=== PATIENT | male | born 1995 | race African-American/Black ===

== ENCOUNTER 2018-09-17 12:23 | Emergency (ER) | payer SELFPAY ==
[~2018-09-17] VITALS: Ht 182.9 cm; Wt 59.0 kg
[~2018-09-17 12:23] MED LIST: AMOX500C PO; AMOX875T PO; AZIT250T6 PO; BENZ100C PO; DICY10CA53 PO; DICY20TA3 PO; HYDR-3164 PO; IBUP-1060 PO; NAPR-695 PO; ONDA4TAB10 SL; ONDA4TAB7 PO; POLY119P4 PO; PRED20TA PO; PRED50TA PO; PROM25TA10 PO
[2018-09-17 12:50] VITALS: BP 107/60
[2018-09-17 12:58] LABS: BASO % 1 % (0-3); EOS # 0.1 x10^3/uL (0.0-0.7); EOS % 4 % (0-3); HEMATOCRIT 41.1 % (39.0-53.0); HEMOGLOBIN 13.8 g/dL (13.0-17.5); LYMPH # 1.7 x10^3/uL (1.0-4.8); LYMPH % 57 % (24-48); MEAN CORPUSCULAR HEMOGLOBIN 29 pg (25-35); MEAN CORPUSCULAR HGB CONC 34 g/dL (31-37); MEAN CORPUSCULAR VOLUME 85 fL (79-100); MONO # 0.2 x10^3/uL (0.0-1.1); MONO % 7 % (0-9); NEUT % 32 % (31-73); PLATELET COUNT 174 x10^3/uL (140-400); RED BLOOD COUNT 4.85 x10^6/uL (4.30-5.70); RED CELL DISTRIBUTION WIDTH 12.8 % (11.5-14.5)
[2018-09-17 13:08] LABS: CALCIUM 8.6 mg/dL (8.5-10.1); CREATININE 0.9 mg/dL (0.7-1.3); GFR 128.9; POTASSIUM 3.7 mmol/L (3.5-5.1)
[2018-09-17 13:14] LABS: ALBUMIN 3.8 g/dL (3.4-5.0); ALBUMIN/GLOBULIN RATIO 1.3 (1.0-1.7); C-REACTIVE PROTEIN 0.5 mg/L (0-3.3); MONONUCLEOSIS PATIENT NEGATIVE (NEGATIVE); TOTAL BILIRUBIN 0.3 mg/dL (0.2-1.0); TOTAL PROTEIN 6.8 g/dL (6.4-8.2)
[2018-09-17] MEDS ORDERED: AMOX500C PO (14:05)
--- NOTE | 2018-09-17 14:06 | PHYS DOC ---
Past Medical History Past Medical History: Anemia, Pneumonia, Other Additional Past Medical Histor: sickle cell trait, dental abcess Past Surgical History: No Surgical History Alcohol Use: None Drug Use: Marijuana Adult General Chief Complaint Chief Complaint: SORE THROAT HPI HPI Patient is a 22 year old male who presents with a sore throat that has hurt intermittently for the past 7 months. The patient has not been seen primary or an ENT specialist for this condition. He states that he has also had some fatigue. He denies earaches or fever. Review of Systems Review of Systems Constitutional: Denies fever or chills [] Eyes: Denies change in visual acuity, redness, or eye pain [] HENT: Denies nasal congestion or sore throat [] Respiratory: Denies cough or shortness of breath [] Cardiovascular: No additional information not addressed in HPI [] GI: Denies abdominal pain, nausea, vomiting, bloody stools or diarrhea [] : Denies dysuria or hematuria [] Musculoskeletal: Denies back pain or joint pain [] Integument: Denies rash or skin lesions [] Neurologic: Denies headache, focal weakness or sensory changes [] Endocrine: Denies polyuria or polydipsia [] All other systems were reviewed and found to be within normal limits, except as documented in this note. Allergies Allergies Allergies Coded Allergies Type Severity Reaction Last Updated Verified No Known Drug Allergies 01/15/16 No Physical Exam Physical Exam Constitutional: Well developed, well nourished, no acute distress, non-toxic appearance. [] HENT: Normocephalic, atraumatic, bilateral external ears normal, pharyngeal erythema with no oral exudates, nose normal. [] Eyes: PERRLA, EOMI, conjunctiva normal, no discharge. [] Neck: Normal range of motion, no tenderness, supple, no stridor. [] Cardiovascular:Heart rate regular rhythm, no murmur [] Lungs & Thorax: Bilateral breath sounds clear to auscultation [] Abdomen: Bowel sounds normal, soft, no tenderness, no masses, no pulsatile masses. [] Skin: Warm, dry, no erythema, no rash. [] Neurologic: Alert and oriented X 3, normal motor function, normal sensory function, no focal deficits noted. [] Psychologic: Affect normal, judgement normal, mood normal. [] Current Patient Data Vital Signs Vital Signs Date Time Temp Pulse Resp B/P (MAP) Pulse Ox O2 Delivery O2 Flow Rate FiO2 09/17/18 12:50 98.2 89 18 107/60 (76) 99 Room Air 98.2 Lab Values Laboratory Tests Test 09/17/18 12:50 White Blood Count 3.0 x10^3/uL (4.0-11.0) L Red Blood Count 4.85 x10^6/uL (4.30-5.70) Hemoglobin 13.8 g/dL (13.0-17.5) Hematocrit 41.1 % (39.0-53.0) Mean Corpuscular Volume 85 fL (79-100) Mean Corpuscular Hemoglobin 29 pg (25-35) Mean Corpuscular Hemoglobin Concent 34 g/dL (31-37) Red Cell Distribution Width 12.8 % (11.5-14.5) Platelet Count 174 x10^3/uL (140-400) Neutrophils (%) (Auto) 32 % (31-73) Lymphocytes (%) (Auto) 57 % (24-48) H Monocytes (%) (Auto) 7 % (0-9) Eosinophils (%) (Auto) 4 % (0-3) H Basophils (%) (Auto) 1 % (0-3) Neutrophils # (Auto) 1.0 x10^3uL (1.8-7.7) L Lymphocytes # (Auto) 1.7 x10^3/uL (1.0-4.8) Monocytes # (Auto) 0.2 x10^3/uL (0.0-1.1) Eosinophils # (Auto) 0.1 x10^3/uL (0.0-0.7) Basophils # (Auto) 0.0 x10^3/uL (0.0-0.2) Erythrocyte Sedimentation Rate 1 (0-15) Sodium Level 142 mmol/L (136-145) Potassium Level 3.7 mmol/L (3.5-5.1) Chloride Level 105 mmol/L (98-107) Carbon Dioxide Level 29 mmol/L (21-32) Anion Gap 8 (6-14) Blood Urea Nitrogen 7 mg/dL (8-26) L Creatinine 0.9 mg/dL (0.7-1.3) Estimated GFR (Cockcroft-Gault) 128.9 BUN/Creatinine Ratio 8 (6-20) Glucose Level 110 mg/dL (70-99) H Calcium Level 8.6 mg/dL (8.5-10.1) Total Bilirubin 0.3 mg/dL (0.2-1.0) Aspartate Amino Transferase (AST) 14 U/L (15-37) L Alanine Aminotransferase (ALT) 13 U/L (16-63) L Alkaline Phosphatase 59 U/L (46-116) C-Reactive Protein, Quantitative 0.5 mg/L (0-3.3) Total Protein 6.8 g/dL (6.4-8.2) Albumin 3.8 g/dL (3.4-5.0) Albumin/Globulin Ratio 1.3 (1.0-1.7) Heterophil Agglutinins Negative (NEGATIVE) Laboratory Tests 09/17/18 12:50 Laboratory Tests 09/17/18 12:50 EKG EKG [] Radiology/Procedures Radiology/Procedures [] Course & Med Decision Making Course & Med Decision Making Pertinent Labs and Imaging studies reviewed. (See chart for details) [] Dragon Disclaimer Dragon Disclaimer This electronic medical record was generated, in whole or in part, using a voice recognition dictation system. Departure Departure Impression: Primary Impression: Acute pharyngitis, unspecified Additional Impression: Fatigue Disposition: 01 HOME, SELF-CARE Condition: STABLE Referrals: NO PCP (PCP) Patient Instructions: Fatigue, Viral and Bacterial Pharyngitis Additional Instructions: Take the medication as directed. Follow-up with primary care for recheck in one week. Return to the emergency department if worsening. Scripts Amoxicillin (AMOXICILLIN) 500 Mg Capsule 2 CAP PO BID for pharyngitis, #40 CAP Prov: MATTY CANAS APRN 09/17/18 Problem Qualifiers MATTY CANAS APRN Sep 17, 2018 14:06
== END 2018-09-17 14:20 | disposition home or self-care (01) ==
LOC: MERGE 12:23 → ER 12:23
DX: J02.9 Acute pharyngitis, unspecified (principal); R53.83 Other fatigue; D57.3 Sickle-cell trait
CPT/HCPCS: 36415; 80053; 85025; 85651; 86140; 86308; 99283

== ENCOUNTER 2018-10-03 11:58 | Emergency (ER) | payer OTHER ==
[~2018-10-03] VITALS: Ht 182.9 cm; Wt 59.0 kg
[2018-10-03 12:07] VITALS: BP 130/79
--- NOTE | 2018-10-03 12:52 | PHYS DOC ---
Past Medical History Past Medical History: No Pertinent History Past Surgical History: Tonsillectomy Alcohol Use: None Drug Use: None Adult General Chief Complaint Chief Complaint: POST-OP PROBLEM HPI HPI Patient is a 22 year old male who presents with s/p tonsillectomy done yesterday at [facility]. He states that this morning her was eating eggs and felt something come forward into his mouth from his left tonsil. He states that he started pulling on it, but then decided he was not sure if that was a safe idea and then let it fall back down. He reports some soreness, but nothing overly painful. He denies bleeding. He denies f/c/n/v/CP/SOB. [] Review of Systems Review of Systems NEG FEVER NO BLEEDING Current Medications Current Medications see med list Allergies Allergies Allergies Coded Allergies Type Severity Reaction Last Updated Verified No Known Drug Allergies 05/21/18 No Physical Exam Physical Exam Constitutional: Well developed, well nourished, no acute distress, non-toxic appearance. [] HENT: Normocephalic, atraumatic, bilateral external ears normal, oropharynx moist, no oral exudates, nose normal. White,surgical cautery artefact visualized at b/l posterior oropharynx with surrounding erythema, no bleeding or purulence appreciated.[] Eyes: PERRLA, EOMI, conjunctiva normal, no discharge. [] Neck: Normal range of motion, no tenderness, supple, no stridor. [] Pulmonary: Normal respiratory effort no increased work of breathing no obvious chest wall trauma Abdomen: Non tender to palpation x 4 [] Skin: Warm, dry, no erythema, no rash. [] Back: No tenderness, no CVA tenderness. [] Extremities: No tenderness, no cyanosis, no clubbing, ROM intact, no edema. [] Neurologic: Alert and oriented X 3, normal motor function, normal sensory function, no focal deficits noted. [] Psychologic: Affect normal, judgement normal, mood normal. [] Current Patient Data Vital Signs Vital Signs Date Time Temp Pulse Resp B/P (MAP) Pulse Ox O2 Delivery O2 Flow Rate FiO2 10/03/18 12:07 98.5 94 14 130/79 (96) 98 Room Air 98.5 EKG EKG [] Radiology/Procedures Radiology/Procedures [] Course & Med Decision Making Course & Med Decision Making Pertinent Labs and Imaging studies reviewed. (See chart for details) Patient is one day s/p b/l tonsillectomy for infection. Pt denies f/c/n/v/CP/ SOB with mild tenderness and soreness to neck. Surgical site looks clean with normal healing processes. No evidence of infection or bleeding. Pt reassured that the surgical site appears normal and as expected given the procedure. Pt advised that if he begins to bleed then he should return to the ER as soon as possible. Pt understands, agrees and expressed satisfaction at this plan. Pt to be d/c'd. [] Levy Disclaimer Dragon Disclaimer This electronic medical record was generated, in whole or in part, using a voice recognition dictation system. Departure Departure Impression: Primary Impression: Status post tonsillectomy Disposition: 01 HOME, SELF-CARE Condition: STABLE SHAQUILLE BARKSDALE MD Oct 03, 2018 12:52
== END 2018-10-03 13:16 | disposition home or self-care (01) ==
LOC: ER 11:58
DX: J95.89 Other postprocedural complications and disorders of respiratory system, not elsewhere classified (principal); M54.2 Cervicalgia; Z90.89 Acquired absence of other organs; Y83.8 Other surgical procedures as the cause of abnormal reaction of the patient, or of later complication, without mention of misadventure at the time of the procedure
CPT/HCPCS: 99281

== ENCOUNTER 2018-10-07 00:05 | Emergency (ER) | payer SELFPAY ==
[~2018-10-07] VITALS: Ht 182.9 cm; Wt 57.6 kg
[2018-10-07 00:23] VITALS: BP 108/79
[2018-10-07] MEDS ORDERED: IBUPROFEN 400 MG TABLET. PO ONE (00:45)
[2018-10-07] MEDS ORDERED: IBUPROFEN 200 MG TABLET. PO ONE (00:45)
[2018-10-07] MEDS ORDERED: DEXAMETHASONE SOD PHOS 20 MG/5 ML VIAL. PO ONE (00:45)
[2018-10-07] MEDS ORDERED: PENICILLIN G BENZATHINE LA 1,200,000 UNIT/2 ML DISP.SYRIN. IM ONE (00:45)
--- NOTE | 2018-10-07 01:24 | PHYS DOC ---
Past Medical History Past Medical History: No Pertinent History Past Surgical History: Tonsillectomy Additional Past Surgical Histo: DENTAL EXTRACTION. Alcohol Use: None Drug Use: None Adult General Chief Complaint Chief Complaint: SORE THROAT HPI HPI 22-year-old male presents to ER with complaints of ongoing sore throat and swelling. He reports he had his tonsils surgically removed 2 days ago denies having his adenoids removed during the surgery. He reports he was seen at urgent care around 6 PM on 10/06/18 reporting he had minimal care while at the clinic. He reports he went to [facility] and sat in the ER for hours without being evaluated. He reports he has had ongoing sore throat and pain with swelling. He denies fever. He denies nausea or vomiting. He reports he anxiety with prescription for penicillin but has not gotten that prescription filled for pharyngitis. He reports he had taken Tylenol and prescribed oxycodone - denies any ibuprofen dosages. Pt denies inability to swallow secretions. Patient denies chest pain or palpitations. Review of Systems Review of Systems Constitutional: Denies fever or chills [] HENT: Denies nasal congestion. Reports sore/swollen throat with pain on swallowing Respiratory: Denies cough or shortness of breath [] Cardiovascular: No additional information not addressed in HPI [] GI: Denies nausea, vomiting Musculoskeletal: Denies neck pain Integument: Denies rash or skin lesions [] Neurologic: Denies headache, focal weakness or sensory changes [] All other systems were reviewed and found to be within normal limits, except as documented in this note. Current Medications Current Medications Current Medications Medications (Trade) Dose Ordered Sig/Liliana Start Time Stop Time Status Last Admin Dose Admin Dexamethasone Sodium Phosphate (Decadron) 10 mg 1X ONCE 10/07/18 00:45 10/07/18 00:47 DC 10/07/18 00:59 10 MG Ibuprofen (Motrin) 200 mg 1X ONCE 10/07/18 00:45 10/07/18 00:47 DC 10/07/18 00:59 200 MG Penicillin G Benzathine (Bicillin L-A) 1,200,000 unit 1X ONCE 10/07/18 00:45 10/07/18 00:47 DC 10/07/18 01:00 1,200,000 UNIT Allergies Allergies Allergies Coded Allergies Type Severity Reaction Last Updated Verified No Known Drug Allergies 05/21/18 No Physical Exam Physical Exam Constitutional: Well developed, well nourished, no acute distress, non-toxic appearance. Clear speech no pooling of secretions HENT: Normocephalic, atraumatic, bilateral ears normal, oropharynx moist- pharyngeal erythema with exudate on bilat. sides of throat- uvula midline, nose normal. [] Eyes: Pupils equal, conjunctiva normal, no discharge. [] Neck: Normal range of motion, no tenderness, supple, no stridor/gross adenopathy Cardiovascular: Heart rate regular rhythm, no murmur [] Lungs & Thorax: Bilateral breath sounds clear to auscultation. Resp. equal/ nonlabored Skin: Warm, dry, no erythema, no rash. [] Extremities: ROM intact, no edema. [] Neurologic: Alert and oriented X 3, normal motor function, normal sensory function, no focal deficits noted. [] Psychologic: Affect normal, judgement normal, mood normal. [] Current Patient Data Vital Signs Vital Signs Date Time Temp Pulse Resp B/P (MAP) Pulse Ox O2 Delivery O2 Flow Rate FiO2 10/07/18 00:23 98.2 70 16 108/79 (89) 98 Room Air 98.2 EKG EKG [] Radiology/Procedures Radiology/Procedures [] Course & Med Decision Making Course & Med Decision Making Patient was evaluated in the ER for complaints of ongoing sore and swollen throat following a tonsillectomy 2 days ago. Patient reports he was supposed to be on penicillin but has not got the prescription filled. Patient had taken no ibuprofen prior to ER visit so dose was given while in the ER along with dose of Decadron. Patient's airway remained patent. He had no difficulty swallowing secretions. Discussed options for treatment with one-time dose of IM Bicillin LA while in the ER versus getting his prescription as he has yet to get that filled. Patient opted to have the IM injection while in the ER. Patient advised on need to follow-up with his surgeon for reevaluation in 1-2 days.Education provided on signs and symptoms to return to ER. Discharge instructions were discussed. Pt encouraged to increase fluid intake and continue with instructions were received at time of his discharge following his tonsillectomy. [] Dragon Disclaimer Dragon Disclaimer This electronic medical record was generated, in whole or in part, using a voice recognition dictation system. Departure Departure Impression: Primary Impression: Pharyngitis Disposition: 01 HOME, SELF-CARE Condition: STABLE Referrals: NO PCP (PCP) Patient Instructions: Diet - Following Tonsillectomy, Adult, Tonsillectomy, Care After, [id number], Viral and Bacterial Pharyngitis Additional Instructions: Drink plenty of fluids. Continue medications as previously prescribed. Tylenol and/or ibuprofen as directed on container for pain control as needed. Follow-up with your surgeon in 1-2 days for reevaluation and further care. RHYS DEWITT APRN Oct 07, 2018 01:24
== END 2018-10-07 01:42 | disposition home or self-care (01) ==
LOC: ER 00:05
DX: J02.9 Acute pharyngitis, unspecified (principal); Z90.89 Acquired absence of other organs
CPT/HCPCS: 96372; 99284; J0561; J1100

== ENCOUNTER 2018-12-21 11:12 | Emergency (ER) | payer SELFPAY ==
[~2018-12-21] VITALS: Ht 182.9 cm; Wt 66.2 kg
[2018-12-21] MEDS ORDERED: MAGNESIUM CITRATE 296 ML SOLUTION. PO ONE (11:30)
[2018-12-21] MEDS ORDERED: IV NORMAL SALINE 1000ML BAG 1,000 ML IV ONE (11:30)
[2018-12-21 11:39] LABS: BASO % 1 % (0-3); EOS % 1 % (0-3); HEMATOCRIT 45.3 % (39.0-53.0); HEMOGLOBIN 15.3 g/dL (13.0-17.5); LYMPH # 1.3 x10^3/uL (1.0-4.8); LYMPH % 30 % (24-48); MEAN CORPUSCULAR HEMOGLOBIN 29 pg (25-35); MEAN CORPUSCULAR HGB CONC 34 g/dL (31-37); MEAN CORPUSCULAR VOLUME 85 fL (79-100); MONO # 0.2 x10^3/uL (0.0-1.1); MONO % 6 % (0-9); NEUT # 2.7 x10^3uL (1.8-7.7); NEUT % 62 % (31-73); PLATELET COUNT 201 x10^3/uL (140-400); RED BLOOD COUNT 5.33 x10^6/uL (4.30-5.70); RED CELL DISTRIBUTION WIDTH 13.6 % (11.5-14.5); WHITE BLOOD COUNT 4.3 x10^3/uL (4.0-11.0)
[2018-12-21 11:47] LABS: CALCIUM 9.2 mg/dL (8.5-10.1); CREATININE 1.1 mg/dL (0.7-1.3); GFR 101.3
[2018-12-21 11:54] LABS: ALBUMIN 4.5 g/dL (3.4-5.0); ALBUMIN/GLOBULIN RATIO 1.3 (1.0-1.7); TOTAL BILIRUBIN 1.1 mg/dL (0.2-1.0)
[2018-12-21] MEDS ORDERED: CONTRAST GIVEN. MC PRN (12:00)
[2018-12-21] MEDS ORDERED: IOHEXOL 300 MG/ML 100ML VIAL. IV ONE (12:00)
[2018-12-21 12:27] LABS: BILIRUBIN,URINE SMALL (NEG); CLARITY,URINE CLEAR; COLOR,URINE YELLOW; NITRITE,URINE NEGATIVE (NEG); PH,URINE 5.5; PROTEIN,URINE NEGATIVE (NEG-TRACE); UROBILINOGEN,URINE 0.2 mg/dL (0.2 mg/dL)
--- NOTE | 2018-12-21 12:33 | PHYS DOC ---
Past Medical History Past Medical History: Anemia, Anxiety, GERD Past Surgical History: Tonsillectomy Additional Past Surgical Histo: DENTAL EXTRACTION. Alcohol Use: None Drug Use: Benzodiazepine, Marijuana Adult General Chief Complaint Chief Complaint: ABDOMINAL PAIN HPI HPI 23-year-old otherwise healthy male presents with abdominal pain. He states this is been ongoing over the last several days. He states it has been progressive to the point this morning that it was intolerable. He states the pain comes in waves. Also, he states that he has not had a bowel movement since Friday. He states this is unusual for him. He states he has the sensation that he needs to go but is unable. He denies any fever chills or sweats. He's had no nausea or vomiting. He denies any dysuria or gross hematuria.[] Review of Systems Review of Systems Constitutional: Denies fever or chills [] Eyes: Denies change in visual acuity, redness, or eye pain [] HENT: Denies nasal congestion or sore throat [] Respiratory: Denies cough or shortness of breath [] Cardiovascular: No additional information not addressed in HPI [] GI: Per history of present illness[] : Denies dysuria or hematuria [] Musculoskeletal: Denies back pain or joint pain [] Integument: Denies rash or skin lesions [] Neurologic: Denies headache, focal weakness or sensory changes [] Endocrine: Denies polyuria or polydipsia [] All other systems were reviewed and found to be within normal limits, except as documented in this note. Current Medications Current Medications Current Medications Medications (Trade) Dose Ordered Sig/Liliana Start Time Stop Time Status Last Admin Dose Admin Info (CONTRAST GIVEN -- Rx MONITORING) 1 each PRN DAILY PRN 12/21/18 12:00 12/23/18 11:59 Iohexol (Omnipaque 300 Mg/ml) 75 ml 1X ONCE 12/21/18 12:00 12/21/18 12:01 DC 12/21/18 12:08 75 ML Magnesium Citrate (Citroma) 296 ml 1X ONCE 12/21/18 11:30 12/21/18 11:31 DC 12/21/18 11:52 296 ML Sodium Chloride 1,000 ml @ 1,000 mls/hr 1X ONCE 12/21/18 11:30 12/21/18 12:29 DC 12/21/18 11:31 1,000 MLS/HR Allergies Allergies Allergies Coded Allergies Type Severity Reaction Last Updated Verified No Known Drug Allergies 05/21/18 No Physical Exam Physical Exam Constitutional: Well developed, well nourished, no acute distress, non-toxic appearance. [] HENT: Normocephalic, atraumatic, bilateral external ears normal, oropharynx moist, no oral exudates, nose normal. [] Eyes: PERRLA, EOMI, conjunctiva normal, no discharge. [] Neck: Normal range of motion, no tenderness, supple, no stridor. [] Cardiovascular:Heart rate regular rhythm, no murmur [] Lungs & Thorax: Bilateral breath sounds clear to auscultation [] Abdomen: Mild diffuse tenderness to palp no rebound or guarding[] Skin: Warm, dry, no erythema, no rash. [] Back: No tenderness, no CVA tenderness. [] Extremities: No tenderness, no cyanosis, no clubbing, ROM intact, no edema. [] Neurologic: Alert and oriented X 3, normal motor function, normal sensory function, no focal deficits noted. [] Psychologic: Anxious. [] Current Patient Data Vital Signs Vital Signs Date Time Temp Pulse Resp B/P (MAP) Pulse Ox O2 Delivery O2 Flow Rate FiO2 12/21/18 11:22 98.7 86 18 135/74 (94) 98 Room Air 98.7 Lab Values Laboratory Tests Test 12/21/18 11:23 12/21/18 12:10 White Blood Count 4.3 x10^3/uL (4.0-11.0) Red Blood Count 5.33 x10^6/uL (4.30-5.70) Hemoglobin 15.3 g/dL (13.0-17.5) Hematocrit 45.3 % (39.0-53.0) Mean Corpuscular Volume 85 fL (79-100) Mean Corpuscular Hemoglobin 29 pg (25-35) Mean Corpuscular Hemoglobin Concent 34 g/dL (31-37) Red Cell Distribution Width 13.6 % (11.5-14.5) Platelet Count 201 x10^3/uL (140-400) Neutrophils (%) (Auto) 62 % (31-73) Lymphocytes (%) (Auto) 30 % (24-48) Monocytes (%) (Auto) 6 % (0-9) Eosinophils (%) (Auto) 1 % (0-3) Basophils (%) (Auto) 1 % (0-3) Neutrophils # (Auto) 2.7 x10^3uL (1.8-7.7) Lymphocytes # (Auto) 1.3 x10^3/uL (1.0-4.8) Monocytes # (Auto) 0.2 x10^3/uL (0.0-1.1) Eosinophils # (Auto) 0.0 x10^3/uL (0.0-0.7) Basophils # (Auto) 0.0 x10^3/uL (0.0-0.2) Sodium Level 138 mmol/L (136-145) Potassium Level 4.0 mmol/L (3.5-5.1) Chloride Level 100 mmol/L (98-107) Carbon Dioxide Level 25 mmol/L (21-32) Anion Gap 13 (6-14) Blood Urea Nitrogen 14 mg/dL (8-26) Creatinine 1.1 mg/dL (0.7-1.3) Estimated GFR (Cockcroft-Gault) 101.3 BUN/Creatinine Ratio 13 (6-20) Glucose Level 80 mg/dL (70-99) Calcium Level 9.2 mg/dL (8.5-10.1) Total Bilirubin 1.1 mg/dL (0.2-1.0) H Aspartate Amino Transferase (AST) 19 U/L (15-37) Alanine Aminotransferase (ALT) 17 U/L (16-63) Alkaline Phosphatase 65 U/L (46-116) Total Protein 8.0 g/dL (6.4-8.2) Albumin 4.5 g/dL (3.4-5.0) Albumin/Globulin Ratio 1.3 (1.0-1.7) Lipase 132 U/L (73-393) Urine Collection Type Unknown Urine Color Yellow Urine Clarity Clear Urine pH 5.5 Urine Specific Walton >=1.030 Urine Protein Negative mg/dL (NEG-TRACE) Urine Glucose (UA) Negative mg/dL (NEG) Urine Ketones (Stick) >=80 mg/dL (NEG) Urine Blood Negative (NEG) Urine Nitrite Negative (NEG) Urine Bilirubin Small (NEG) Urine Urobilinogen Dipstick 0.2 mg/dL (0.2 mg/dL) Urine Leukocyte Esterase Negative (NEG) Urine RBC 0 /HPF (0-2) Urine WBC Occ /HPF (0-4) Urine Squamous Epithelial Cells Occ /LPF Urine Bacteria 0 /HPF (0-FEW) Laboratory Tests 12/21/18 11:23 Laboratory Tests 12/21/18 11:23 EKG EKG [] Radiology/Procedures Radiology/Procedures [] Impressions: PROCEDURE: CT ABD PELV W/ IV CONTRST ONLY Examination: CT of the abdomen pelvis with IV contrast HISTORY: History of abdominal pain for 3 days COMPARISON: None available. Exposure: One or more of the following individualized dose reduction techniques were utilized for this examination: 1. Automated exposure control 2. Adjustment of the mA and/or kV according to patient size 3. Use of iterative reconstruction technique FINDINGS: The bibasilar lungs are clear. No evidence of free air identified in the abdomen. The visualized liver, spleen, adrenals grossly appears unremarkable. The gallbladder demonstrates small densities within could be gallstones. However evaluation is limited. Visualized pancreas grossly appears unremarkable. The stomach is distended with fluid and food. The small bowel is nondilated. The appendix is normal. Feces and gas noted in the colon. The urinary bladder is minimally distended. The bilateral kidneys enhance symmetrically. The caliber of the aorta grossly appears unremarkable. No evidence of lytic bony destructive lesion. IMPRESSION: 1. Mild distention of stomach with fluid and food. 2. Probable small gallstones. Course & Med Decision Making Course & Med Decision Making Pertinent Labs and Imaging studies reviewed. (See chart for details) [] Dragon Disclaimer Dragon Disclaimer This electronic medical record was generated, in whole or in part, using a voice recognition dictation system. Departure Departure Impression: Primary Impression: Abdominal pain Disposition: HOME, SELF-CARE Condition: IMPROVED Referrals: NO PCP (PCP) Patient Instructions: Abdominal Pain, Constipation, Adult Additional Instructions: Return emergency department with any new or concerning symptoms Problem Qualifiers Primary Impression: Abdominal pain Abdominal location: generalized Qualified Codes: R10.84 - Generalized abdominal pain GOLD COLE DO Dec 21, 2018 12:33
[2018-12-21 12:35] VITALS: BP 135/74
[2018-12-21 12:35] LABS: BACTERIA,URINE 0 /HPF (0-FEW); RBC,URINE 0 /HPF (0-2); SQUAMOUS EPITHELIAL CELL,UR OCC /LPF; WBC,URINE OCC /HPF (0-4)
== END 2018-12-21 12:49 | disposition home or self-care (01) ==
LOC: ER 11:12
DX: R10.84 Generalized abdominal pain (principal); F41.9 Anxiety disorder, unspecified; K21.9 Gastro-esophageal reflux disease without esophagitis; Z90.89 Acquired absence of other organs
CPT/HCPCS: 36415; 74177; 80053; 81001; 83690; 85025; 99285; J7030; Q9967

== ENCOUNTER 2019-02-01 05:53 | Emergency (ER) | payer OTHER ==
[~2019-02-01] VITALS: Ht 182.9 cm; Wt 66.2 kg
[2019-02-01 06:02] VITALS: BP 130/68
== END 2019-02-01 06:47 | disposition left against medical advice (07) ==
LOC: ER 05:53
DX: H57.11 Ocular pain, right eye (principal); Z53.21 Procedure and treatment not carried out due to patient leaving prior to being seen by health care provider

== ENCOUNTER 2019-03-07 20:16 | Emergency (ER) | payer OTHER ==
[~2019-03-07] VITALS: Ht 182.9 cm; Wt 61.7 kg
[2019-03-07 20:20] VITALS: BP 122/61
[2019-03-07 20:28] LABS: BILIRUBIN,URINE NEGATIVE (NEG); CLARITY,URINE CLEAR; COLOR,URINE YELLOW; NITRITE,URINE NEGATIVE (NEG); PROTEIN,URINE NEGATIVE (NEG-TRACE)
[2019-03-07 20:35] LABS: BACTERIA,URINE 0 /HPF (0-FEW); RBC,URINE 0 /HPF (0-2); WBC,URINE 0 /HPF (0-4)
[2019-03-07] MEDS ORDERED: AZITHROMYCIN 250 MG TABLET. PO ONE (21:00)
[2019-03-07] MEDS ORDERED: cefTRIAXone IM 250 MG VIAL IM ONE (21:00)
--- NOTE | 2019-03-07 21:14 | PHYS DOC ---
Past Medical History Past Medical History: Anemia, Anxiety, Asthma, GERD Past Surgical History: Tonsillectomy Additional Past Surgical Histo: DENTAL EXTRACTION. Alcohol Use: None Drug Use: Benzodiazepine, Marijuana Adult General Chief Complaint Chief Complaint: PAIN ON URINATION HPI HPI Patient is a 23 year old AA male who presents to the emergency department with complaints of suprapubic pain after urination and irregular penile discharge for the last 5 days. He reports some increased frequency with urination. He denies any hematuria, dysuria, back pain, nausea, vomiting, diarrhea, or fever. He currently denies any pain at this time. He denies any known exposure to sexually transmitted infections. Review of Systems Review of Systems Constitutional: Denies fever or chills [] Eyes: Denies change in visual acuity, redness, or eye pain [] HENT: Denies nasal congestion or sore throat [] Respiratory: Denies cough or shortness of breath [] Cardiovascular: No additional information not addressed in HPI [] GI: Denies abdominal pain, nausea, vomiting, or diarrhea [] : Denies dysuria or hematuria; see HPI [] Musculoskeletal: Denies back pain or joint pain [] Integument: Denies rash or skin lesions [] Neurologic: Denies headache, focal weakness or sensory changes [] Complete systems were reviewed and found to be within normal limits, except as documented in this note. Current Medications Current Medications Current Medications Medications (Trade) Dose Ordered Sig/Liliana Start Time Stop Time Status Last Admin Dose Admin Azithromycin (Zithromax) 1,000 mg 1X ONCE 03/07/19 21:00 03/07/19 21:01 DC 03/07/19 20:51 1,000 MG Ceftriaxone Sodium (Rocephin Im) 250 mg 1X ONCE 03/07/19 21:00 03/07/19 21:01 DC 03/07/19 20:51 250 MG Allergies Allergies Allergies Coded Allergies Type Severity Reaction Last Updated Verified No Known Drug Allergies 05/21/18 No Physical Exam Physical Exam Constitutional: Well developed, well nourished, no acute distress, non-toxic appearance. [] HENT: Normocephalic, atraumatic, bilateral external ears normal, nose normal. [] Eyes: PERRLA, EOMI, conjunctiva normal, no discharge. [] Neck: Normal range of motion, no stridor. [] Cardiovascular:Heart rate regular rhythm, no murmur [] Lungs & Thorax: Bilateral breath sounds clear to auscultation [] Abdomen: soft, no tenderness, no masses, no pulsatile masses. [] Skin: Warm, dry, no erythema, no rash. [] Back: No CVA tenderness. [] Extremities: No cyanosis, ROM intact, no edema. [] Neurologic: Alert and oriented X 3, no focal deficits noted. [] Psychologic: Affect normal, judgement normal, mood normal. [] Current Patient Data Vital Signs Vital Signs Date Time Temp Pulse Resp B/P (MAP) Pulse Ox O2 Delivery O2 Flow Rate FiO2 03/07/19 20:20 98.2 93 14 122/61 (81) 97 Room Air 98.2 Lab Values Laboratory Tests Test 03/07/19 20:21 Urine Collection Type Void Urine Color Yellow Urine Clarity Clear Urine pH 7.0 Urine Specific [place] 1.025 Urine Protein Negative mg/dL (NEG-TRACE) Urine Glucose (UA) Negative mg/dL (NEG) Urine Ketones (Stick) Negative mg/dL (NEG) Urine Blood Negative (NEG) Urine Nitrite Negative (NEG) Urine Bilirubin Negative (NEG) Urine Urobilinogen Dipstick 1.0 mg/dL (0.2 mg/dL) Urine Leukocyte Esterase Negative (NEG) Urine RBC 0 /HPF (0-2) Urine WBC 0 /HPF (0-4) Urine Squamous Epithelial Cells None /LPF Urine Bacteria 0 /HPF (0-FEW) Urine Mucus Marked /LPF EKG EKG [] Radiology/Procedures Radiology/Procedures [] Course & Med Decision Making Course & Med Decision Making Pertinent Labs and Imaging studies reviewed. (See chart for details) dx: Abnormal nonbloody discharge from penis, suspected sexually transmitted infection Urinalysis is not concerning for UTI, or trichomoniasis. Patient was treated prophylactically with 250 mg of IM Rocephin, and 1 g of PO Zithromax. Patient was instructed to avoid having intercourse until the results of gonorrhea and chlamydia testing are available, patient was notified that these results would not be available for 48 hours. If one or both of these tests is positive, patient needs to refrain from intercourse for approximately 1 week following the treatment of any current partners. Patient verbalized an understanding of home care, medications, follow-up, and return to ED instructions and was in agreement with the plan of care. [] Dragon Disclaimer Dragon Disclaimer This electronic medical record was generated, in whole or in part, using a voice recognition dictation system. Departure Departure Impression: Primary Impression: Abnormal non-bloody discharge from penis Additional Impression: Contact with and (suspected) exposure to infections with a predominantly sexual mode of transmission Disposition: HOME, SELF-CARE Condition: STABLE Referrals: NO PCP (PCP) Patient Instructions: Sexually Transmitted Disease, [id number] Additional Instructions: Recommend that you go to your local health department for comprehensive sexually transmitted disease testing. You have been treated for a suspected gonorrhea and chlamydia. Avoid having intercourse until the results of gonorrhea and chlamydia testing are available, these results will not be available for 48 hours. If one or both of these tests is positive, you need to refrain from intercourse for approximately 1 week following the treatment of any current partners. Follow-up with your primary care doctor if symptoms persist, return to ER if symptoms worsen. Problem Qualifiers SABAS GRESHAM APRN Mar 07, 2019 21:14
== END 2019-03-07 21:33 | disposition home or self-care (01) ==
LOC: ER 20:16
DX: R36.9 Urethral discharge, unspecified (principal); Z20.2 Contact with and (suspected) exposure to infections with a predominantly sexual mode of transmission; R10.30 Lower abdominal pain, unspecified; F41.9 Anxiety disorder, unspecified; J45.909 Unspecified asthma, uncomplicated; K21.9 Gastro-esophageal reflux disease without esophagitis; Z90.89 Acquired absence of other organs
CPT/HCPCS: 81001; 87491; 87591; 96372; 99284; J0696; Q0144

== ENCOUNTER 2019-05-23 21:56 | Emergency (ER) | payer SELFPAY ==
[~2019-05-23] VITALS: Ht 182.9 cm; Wt 56.7 kg
--- NOTE | 2019-05-23 22:20 | PHYS DOC ---
Past Medical History Past Medical History: Anemia, Anxiety, Asthma, GERD (ROJAS HOLLY APRN) Past Surgical History: Tonsillectomy Additional Past Surgical Histo: DENTAL EXTRACTION. (ROJAS HOLLY APRN) Alcohol Use: None Drug Use: Benzodiazepine, Marijuana (ROJAS HOLLY APRN) Adult General Chief Complaint Chief Complaint: CHEST PAIN HPI HPI Patient is a 23 year old male who presents with [chest discomfort. states approximately 2 hours ago he started to have some sharp chest pain. States he has had this same pain in the past, had been seen at [facility] for it approximately 2 weeks ago and was told he has inflammation in his lungs and he should take ibuprofen. states the pain came back again today. Denies recent fever, nausea, vomiting, SOA. states he did smoke marijuana tonight prior to the pain starting. States he has not taken any other medications for this. ] (ROJAS HOLLY APRN) Review of Systems Review of Systems Constitutional: Denies fever or chills [] Eyes: Denies change in visual acuity, redness, or eye pain [] HENT: Denies nasal congestion or sore throat [] Respiratory: Denies shortness of breath, however does report occasional dry cough. [] Cardiovascular: No additional information not addressed in HPI [] GI: Denies abdominal pain, nausea, vomiting, bloody stools or diarrhea [] : Denies dysuria or hematuria [] Musculoskeletal: Denies back pain or joint pain [] Integument: Denies rash or skin lesions [] Neurologic: Denies headache, focal weakness or sensory changes [] Endocrine: Denies polyuria or polydipsia [] All other systems were reviewed and found to be within normal limits, except as documented in this note. (ROJAS HOLLY APRN) Current Medications Current Medications Current Medications Medications (Trade) Dose Ordered Sig/Liliana Start Time Stop Time Status Last Admin Dose Admin Multi-Ingredient Mouthwash/Gargle (Gi Cocktail) 20 ml 1X ONCE 05/23/19 23:45 05/23/19 23:46 DC 05/23/19 23:45 20 ML (SHAQUILLE HENDERSON MD) Allergies Allergies Allergies Coded Allergies Type Severity Reaction Last Updated Verified No Known Drug Allergies 05/21/18 No (SHAQUILLE HENDERSON MD) Physical Exam Physical Exam Constitutional: Well developed, well nourished, no acute distress, non-toxic appearance. [] HENT: Normocephalic, atraumatic, bilateral external ears normal, oropharynx moist, no oral exudates, nose normal. [] Eyes: PERRLA, EOMI, conjunctiva normal, no discharge. [] Neck: Normal range of motion, no tenderness, supple, no stridor. [] Cardiovascular:Heart rate regular rhythm, no murmur [] Lungs & Thorax: Bilateral breath sounds clear to auscultation [] Abdomen: Bowel sounds normal, soft, no tenderness, no masses, no pulsatile masses. [] Skin: Warm, dry, no erythema, no rash. [] Back: No tenderness, no CVA tenderness. [] Extremities: No tenderness, no cyanosis, no clubbing, ROM intact, no edema. [] Neurologic: Alert and oriented X 3, normal motor function, normal sensory function, no focal deficits noted. [] Psychologic: Affect normal, judgement normal, mood normal. [] (ROJAS HOLLY APRN) Current Patient Data Vital Signs Vital Signs Date Time Temp Pulse Resp B/P (MAP) Pulse Ox O2 Delivery O2 Flow Rate FiO2 05/23/19 23:47 66 93/57 (69) 97 Room Air 05/23/19 22:05 98.7 17 98.7 (SHAQUILLE HENDERSON MD) Lab Values Laboratory Tests Test 05/23/19 22:10 05/23/19 22:20 White Blood Count 6.7 x10^3/uL (4.0-11.0) Red Blood Count 5.34 x10^6/uL (4.30-5.70) Hemoglobin 15.2 g/dL (13.0-17.5) Hematocrit 45.0 % (39.0-53.0) Mean Corpuscular Volume 84 fL (79-100) Mean Corpuscular Hemoglobin 29 pg (25-35) Mean Corpuscular Hemoglobin Concent 34 g/dL (31-37) Red Cell Distribution Width 13.7 % (11.5-14.5) Platelet Count 220 x10^3/uL (140-400) Neutrophils (%) (Auto) 23 % (31-73) L Lymphocytes (%) (Auto) 64 % (24-48) H Monocytes (%) (Auto) 8 % (0-9) Eosinophils (%) (Auto) 4 % (0-3) H Basophils (%) (Auto) 1 % (0-3) Neutrophils # (Auto) 1.5 x10^3/uL (1.8-7.7) L Lymphocytes # (Auto) 4.3 x10^3/uL (1.0-4.8) Monocytes # (Auto) 0.5 x10^3/uL (0.0-1.1) Eosinophils # (Auto) 0.3 x10^3/uL (0.0-0.7) Basophils # (Auto) 0.1 x10^3/uL (0.0-0.2) Segmented Neutrophils % 23 % (35-66) L Lymphocytes % 64 % (24-48) H Atypical Lymphocytes % (Manual) 4 % (0-0) H Monocytes % 4 % (0-10) Eosinophils % 4 % (0-5) Basophils % 1 % (0-3) Platelet Estimate Adequate (ADEQUATE) Poikilocytosis Slight Ovalocytes Few Schistocytes Occ Sodium Level 142 mmol/L (136-145) Potassium Level 3.4 mmol/L (3.5-5.1) L Chloride Level 104 mmol/L (98-107) Carbon Dioxide Level 28 mmol/L (21-32) Anion Gap 10 (6-14) Blood Urea Nitrogen 12 mg/dL (8-26) Creatinine 1.1 mg/dL (0.7-1.3) Estimated GFR (Cockcroft-Gault) 101.3 BUN/Creatinine Ratio 11 (6-20) Glucose Level 102 mg/dL (70-99) H Lactic Acid Level 2.2 mmol/L (0.4-2.0) H Calcium Level 8.9 mg/dL (8.5-10.1) Total Bilirubin 0.6 mg/dL (0.2-1.0) Aspartate Amino Transferase (AST) 14 U/L (15-37) L Alanine Aminotransferase (ALT) 12 U/L (16-63) L Alkaline Phosphatase 74 U/L (46-116) Troponin I Quantitative < 0.017 ng/mL (0.000-0.055) Total Protein 7.7 g/dL (6.4-8.2) Albumin 4.4 g/dL (3.4-5.0) Albumin/Globulin Ratio 1.3 (1.0-1.7) Lipase 157 U/L (73-393) Urine Collection Type Unknown Urine Color Yellow Urine Clarity Clear Urine pH 5.5 Urine Specific [place] 1.025 Urine Protein Negative mg/dL (NEG-TRACE) Urine Glucose (UA) Negative mg/dL (NEG) Urine Ketones (Stick) Negative mg/dL (NEG) Urine Blood Negative (NEG) Urine Nitrite Negative (NEG) Urine Bilirubin Negative (NEG) Urine Urobilinogen Dipstick 1.0 mg/dL (0.2 mg/dL) Urine Leukocyte Esterase Negative (NEG) Urine RBC 0 /HPF (0-2) Urine WBC 0 /HPF (0-4) Urine Bacteria 0 /HPF (0-FEW) Urine Mucus Marked /LPF Laboratory Tests 05/23/19 22:10 Laboratory Tests 05/23/19 22:10 (SHAQUILLE HENDERSON MD) Lab Values Laboratory Tests Test 05/23/19 22:10 05/23/19 22:20 White Blood Count 6.7 x10^3/uL (4.0-11.0) Red Blood Count 5.34 x10^6/uL (4.30-5.70) Hemoglobin 15.2 g/dL (13.0-17.5) Hematocrit 45.0 % (39.0-53.0) Mean Corpuscular Volume 84 fL (79-100) Mean Corpuscular Hemoglobin 29 pg (25-35) Mean Corpuscular Hemoglobin Concent 34 g/dL (31-37) Red Cell Distribution Width 13.7 % (11.5-14.5) Platelet Count 220 x10^3/uL (140-400) Neutrophils (%) (Auto) 23 % (31-73) L Lymphocytes (%) (Auto) 64 % (24-48) H Monocytes (%) (Auto) 8 % (0-9) Eosinophils (%) (Auto) 4 % (0-3) H Basophils (%) (Auto) 1 % (0-3) Neutrophils # (Auto) 1.5 x10^3/uL (1.8-7.7) L Lymphocytes # (Auto) 4.3 x10^3/uL (1.0-4.8) Monocytes # (Auto) 0.5 x10^3/uL (0.0-1.1) Eosinophils # (Auto) 0.3 x10^3/uL (0.0-0.7) Basophils # (Auto) 0.1 x10^3/uL (0.0-0.2) Segmented Neutrophils % 23 % (35-66) L Lymphocytes % 64 % (24-48) H Atypical Lymphocytes % (Manual) 4 % (0-0) H Monocytes % 4 % (0-10) Eosinophils % 4 % (0-5) Basophils % 1 % (0-3) Platelet Estimate Adequate (ADEQUATE) Poikilocytosis Slight Ovalocytes Few Schistocytes Occ Sodium Level 142 mmol/L (136-145) Potassium Level 3.4 mmol/L (3.5-5.1) L Chloride Level 104 mmol/L (98-107) Carbon Dioxide Level 28 mmol/L (21-32) Anion Gap 10 (6-14) Blood Urea Nitrogen 12 mg/dL (8-26) Creatinine 1.1 mg/dL (0.7-1.3) Estimated GFR (Cockcroft-Gault) 101.3 BUN/Creatinine Ratio 11 (6-20) Glucose Level 102 mg/dL (70-99) H Lactic Acid Level 2.2 mmol/L (0.4-2.0) H Calcium Level 8.9 mg/dL (8.5-10.1) Total Bilirubin 0.6 mg/dL (0.2-1.0) Aspartate Amino Transferase (AST) 14 U/L (15-37) L Alanine Aminotransferase (ALT) 12 U/L (16-63) L Alkaline Phosphatase 74 U/L (46-116) Troponin I Quantitative < 0.017 ng/mL (0.000-0.055) Total Protein 7.7 g/dL (6.4-8.2) Albumin 4.4 g/dL (3.4-5.0) Albumin/Globulin Ratio 1.3 (1.0-1.7) Lipase 157 U/L (73-393) Urine Collection Type Unknown Urine Color Yellow Urine Clarity Clear Urine pH 5.5 Urine Specific [place] 1.025 Urine Protein Negative mg/dL (NEG-TRACE) Urine Glucose (UA) Negative mg/dL (NEG) Urine Ketones (Stick) Negative mg/dL (NEG) Urine Blood Negative (NEG) Urine Nitrite Negative (NEG) Urine Bilirubin Negative (NEG) Urine Urobilinogen Dipstick 1.0 mg/dL (0.2 mg/dL) Urine Leukocyte Esterase Negative (NEG) Urine RBC 0 /HPF (0-2) Urine WBC 0 /HPF (0-4) Urine Bacteria 0 /HPF (0-FEW) Urine Mucus Marked /LPF Laboratory Tests 05/23/19 22:10 Laboratory Tests 05/23/19 22:10 (ROJAS HOLLY APRN) EKG EKG no STEMI per Dr Henderson. Sinus rhythm 60. [] (ROJAS HOLLY APRN) Radiology/Procedures Radiology/Procedures []FINDINGS: 2 views of the chest are obtained. There is no infiltrate, pleural effusion or pneumothorax. The heart is normal in size. There is nodular opacity overlying both lower lobes likely due to overlying osseous and pulmonary vascular shadows. IMPRESSION: No acute pulmonary finding. Electronically signed by: Anh Pierce MD (05/23/2019 10:48 PM) [facility] (ROJAS HOLLY APRN) Course & Med Decision Making Course & Med Decision Making Pertinent Labs and Imaging studies reviewed. (See chart for details) []discussed findings with patient, states he feels better but still has some of the sharp pain in his chest. Will try GI Cocktail at this time Following GI cocktail, patient reporting improvement. (ROJAS HOLLY APRN) Course & Med Decision Making Staff Physician Addendum: I was working in the ER during the course of this patient's visit. I was available for consultation as needed, but I was not directly involved in the ca re of this patient. (SHAQUILLE HENDERSON MD) Dragon Disclaimer Dragon Disclaimer This electronic medical record was generated, in whole or in part, using a voice recognition dictation system. (ROJAS HOLLY APRN) Departure Departure Impression: Primary Impression: Epigastric pain Disposition: HOME, SELF-CARE Condition: STABLE Referrals: NO PCP (PCP) Patient Instructions: Chest Pain (Nonspecific) Additional Instructions: As we discussed, your labs and imaging did not show any acute problems today. Continue to rest, drink plenty of fluids. You can try the Tums at home, as she suggested. Try to continue to reduce your smoking, as this irritates your lungs and can contribute to your chest discomfort. ROJAS HOLLY APRN May 23, 2019 22:20 SHAQUILLE HENDERSON MD May 25, 2019 00:30
[2019-05-23 22:24] LABS: BASO # 0.1 x10^3/uL (0.0-0.2); BASO % 1 % (0-3); EOS # 0.3 x10^3/uL (0.0-0.7); EOS % 4 % (0-3); HEMOGLOBIN 15.2 g/dL (13.0-17.5); LYMPH # 4.3 x10^3/uL (1.0-4.8); LYMPH % 64 % (24-48); MEAN CORPUSCULAR HEMOGLOBIN 29 pg (25-35); MEAN CORPUSCULAR HGB CONC 34 g/dL (31-37); MEAN CORPUSCULAR VOLUME 84 fL (79-100); MONO # 0.5 x10^3/uL (0.0-1.1); MONO % 8 % (0-9); NEUT # 1.5 x10^3/uL (1.8-7.7); NEUT % 23 % (31-73); PLATELET COUNT 220 x10^3/uL (140-400); RED BLOOD COUNT 5.34 x10^6/uL (4.30-5.70); RED CELL DISTRIBUTION WIDTH 13.7 % (11.5-14.5); WHITE BLOOD COUNT 6.7 x10^3/uL (4.0-11.0)
[2019-05-23 22:28] LABS: BILIRUBIN,URINE NEGATIVE (NEG); CLARITY,URINE CLEAR; COLOR,URINE YELLOW; NITRITE,URINE NEGATIVE (NEG); PH,URINE 5.5; PROTEIN,URINE NEGATIVE (NEG-TRACE)
[2019-05-23 22:30] LABS: CALCIUM 8.9 mg/dL (8.5-10.1); CREATININE 1.1 mg/dL (0.7-1.3); GFR 101.3; POTASSIUM 3.4 mmol/L (3.5-5.1)
[2019-05-23 22:36] LABS: ALBUMIN 4.4 g/dL (3.4-5.0); ALBUMIN/GLOBULIN RATIO 1.3 (1.0-1.7); TOTAL BILIRUBIN 0.6 mg/dL (0.2-1.0); TOTAL PROTEIN 7.7 g/dL (6.4-8.2)
[2019-05-23 22:37] LABS: BACTERIA,URINE 0 /HPF (0-FEW); RBC,URINE 0 /HPF (0-2); WBC,URINE 0 /HPF (0-4)
--- NOTE | 2019-05-23 22:51 | RAD ---
EXAM: Chest, 2 views. HISTORY: Chest pain. COMPARISON: None. FINDINGS: 2 views of the chest are obtained. There is no infiltrate, pleural effusion or pneumothorax. The heart is normal in size. There is nodular opacity overlying both lower lobes likely due to overlying osseous and pulmonary vascular shadows. IMPRESSION: No acute pulmonary finding. Electronically signed by: Anh Pierce MD (05/23/2019 10:48 PM) [facility]
[2019-05-23 23:06] LABS: OVALOCYTES FEW; PLT ESTIMATE ADEQUATE (ADEQUATE); POIKILOCYTOSIS SLIGHT
[2019-05-23 23:07] LABS: % ATYL 4 % (0-0); % BASOS 1 % (0-3); % EOS 4 % (0-5); % MONOS 4 % (0-10)
[2019-05-23 23:09] LABS: % LYMPHS 64 % (24-48); % SEGS 23 % (35-66); SCHISTOCYTES OCC
[2019-05-23] MEDS ORDERED: LIDO:MAALOX 1:1 20 ML SINGLE DOSE. SWSW ONE (23:45)
[2019-05-23 23:47] VITALS: BP 93/57
--- NOTE | 2019-05-24 07:36 | EKG ---
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
== END 2019-05-24 00:05 | disposition home or self-care (01) ==
LOC: ER 21:56
DX: R10.13 Epigastric pain (principal); F41.9 Anxiety disorder, unspecified; J45.909 Unspecified asthma, uncomplicated; K21.9 Gastro-esophageal reflux disease without esophagitis; Z90.89 Acquired absence of other organs; F12.90 Cannabis use, unspecified, uncomplicated
CPT/HCPCS: 36415; 71046; 80053; 81001; 83605; 83690; 84484; 85007; 85025; 93005; 99285

== ENCOUNTER 2019-06-03 12:18 | Emergency (ER) | payer SELFPAY ==
[~2019-06-03] VITALS: Ht 182.9 cm; Wt 56.8 kg
[2019-06-03] MEDS ORDERED: LIDO:MAALOX 1:1 20 ML SINGLE DOSE. SWSW ONE (13:30)
[2019-06-03 14:25] VITALS: BP 97/65
--- NOTE | 2019-06-03 15:39 | PHYS DOC ---
Past Medical History Past Medical History: Anemia, GERD Past Surgical History: Other Additional Past Surgical Histo: DENTAL EXTRACTION. Additional Information: 2-3 cigarettes daily Alcohol Use: None Drug Use: Marijuana Adult General Chief Complaint Chief Complaint: ABDOMINAL PAIN HPI HPI Patient is a 23 year old AA male who presents to the emergency department with complaints of epigastric burning and belching. He reports concern because he was diagnosed with a thoracic aortic aneurysm and gallstones last week a [facility]. He states he is supposed to follow-up with a tile installer but he does not have an appointment until June visit insurance problems. Patient states that he takes 40 mg of omeprazole daily and has been taking the medication as prescribed. Patient reports that he has been also taking a large amount of ibuprofen recently. Patient states that he usually takes the ibuprofen on an empty stomach. He denies any palpitations, fever, shortness of breath, nausea, vomiting, diarrhea or fever, cough, shortness of breath, back pain, hemoptysis, fatigue, or rash. He rates his pain 8 out of 10 on the pain scale and describes it as a burning sensation. He denies any alleviating or exacerbating factors. All other ROS is neg unless otherwise noted in HPI. Review of Systems Review of Systems See Above Current Medications Current Medications Current Medications Medications (Trade) Dose Ordered Sig/Liliana Start Time Stop Time Status Last Admin Dose Admin Multi-Ingredient Mouthwash/Gargle (Gi Cocktail) 20 ml 1X ONCE 06/03/19 13:30 06/03/19 13:31 DC 06/03/19 13:35 20 ML Allergies Allergies Allergies Coded Allergies Type Severity Reaction Last Updated Verified No Known Drug Allergies 05/21/18 No Physical Exam Physical Exam See Above Constitutional: Well developed, well nourished, no acute distress, non-toxic appearance. [] HENT: Normocephalic, atraumatic, bilateral external ears normal, oropharynx moist, no oral exudates, nose normal. [] Eyes: PERRLA, EOMI, conjunctiva normal, no discharge. [] Neck: Normal range of motion, no stridor. [] Cardiovascular:Heart rate regular rhythm, no murmur [] Lungs & Thorax: Bilateral breath sounds clear to auscultation, regular respirations, no retractions [] Abdomen: Bowel sounds normal, soft, epigastric TTP, no guarding, no rebound tenderness, no masses, no pulsatile masses. [] Skin: Warm, dry, no erythema, no rash. [] Back: No tenderness Extremities: No cyanosis, ROM intact, no edema. [] Neurologic: Alert and oriented X 3, no focal deficits noted. [] Psychologic: Affect normal, judgement normal, mood normal. [] Current Patient Data Vital Signs Vital Signs Date Time Temp Pulse Resp B/P (MAP) Pulse Ox O2 Delivery O2 Flow Rate FiO2 06/03/19 14:25 70 21 97/65 (76) 98 Room Air 06/03/19 12:25 98.3 98.3 EKG EKG [] Radiology/Procedures Radiology/Procedures [] Course & Med Decision Making Course & Med Decision Making Pertinent Labs and Imaging studies reviewed. (See chart for details) Patient is a 23 year-old male who presented to the emergency room with concerns of epigastric pain. Patient was anxious because he was recently diagnosed with a thoracic aneurysm at [facility] about a week ago. He denied any dizziness, syncope, back pain, or report of shearing pain in his chest. Patient reportedly has been taking a lot of ibuprofen on an empty stomach recently. Patient was given a GI cocktail in the emergency department. He was observed for some time after the GI cocktail. Patient reported that his symptoms were resolved after taking the medication. He was instructed to stop taking ibuprofen on an empty stomach and to continue taking his omeprazole as prescribed. 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 Patient was instructed to return to the ER if symptoms worsen. Patient verbalized an understanding of home care, medications, follow-up, and return to ED instructions and was in agreement with the plan of care. [] Dragon Disclaimer Dragon Disclaimer This electronic medical record was generated, in whole or in part, using a voice recognition dictation system. Departure Departure Impression: Primary Impression: Epigastric pain Additional Impression: GERD (gastroesophageal reflux disease) Disposition: 01 HOME, SELF-CARE Condition: STABLE Referrals: NO PCP (PCP) Patient Instructions: Diet for Gastroesophageal Reflux Disease, Adult, [id number], Gastroesophageal Reflux Disease, Adult, [id number] Additional Instructions: Do not take ibuprofen on an empty stomach. Continue taking your Famotidine as re ported. 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 Follow up with your primary care doctor for further evaluation and treatment. Return to the ER if symptoms worsen. Problem Qualifiers Additional Impression: GERD (gastroesophageal reflux disease) Esophagitis presence: esophagitis presence not specified Qualified Codes: K21.9 - Gastro-esophageal reflux disease without esophagitis SABAS GRESHAM [employer] Jun 03, 2019 15:39
== END 2019-06-03 15:03 | disposition home or self-care (01) ==
LOC: ER 12:18
DX: K21.9 Gastro-esophageal reflux disease without esophagitis (principal); F17.210 Nicotine dependence, cigarettes, uncomplicated; Z86.2 Personal history of diseases of the blood and blood-forming organs and certain disorders involving the immune mechanism
CPT/HCPCS: 99283

== ENCOUNTER 2019-07-06 17:00 | Emergency (ER) | payer OTHER | END 2019-07-06 19:18 | disposition left against medical advice (07) | LOC: ER 17:00 | DX: R07.0 Pain in throat (principal); R10.9 Unspecified abdominal pain; Z53.21 Procedure and treatment not carried out due to patient leaving prior to being seen by health care provider ==

== ENCOUNTER 2019-07-21 18:26 | Emergency (ER) | payer OTHER ==
[~2019-07-21] VITALS: Ht 182.9 cm; Wt 56.0 kg
[2019-07-21 18:45] VITALS: BP 108/58
[2019-07-21] MEDS ORDERED: ORPHENADRINE CITRATE 60 MG/2 ML VIAL. IM ONE (19:45)
[2019-07-21] MEDS ORDERED: KETOROLAC 60 MG/2 ML VIAL. IM ONE (19:45)
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
[2019-07-21] MEDS ORDERED: ORPH100T PO (21:26)
[2019-07-21] MEDS ORDERED: NAPR-514 PO (21:26)
== END 2019-07-21 21:30 | disposition home or self-care (01) ==
LOC: ER 18:26
DX: R07.81 Pleurodynia (principal); G89.11 Acute pain due to trauma; K21.9 Gastro-esophageal reflux disease without esophagitis; V43.63XA Car passenger injured in collision with pick-up truck in traffic accident, initial encounter; Y93.89 Activity, other specified; Y92.488 Other paved roadways as the place of occurrence of the external cause; Y99.8 Other external cause status
CPT/HCPCS: 71101; 96372; 99284; J1885; J2360

== ENCOUNTER 2020-03-15 09:27 | Emergency (ER) | payer OTHER ==
[~2020-03-15] VITALS: Ht 182.9 cm; Wt 59.0 kg
[~2020-03-15 09:27] MED LIST changes: +NAPR-514 PO; +ORPH100T PO
[2020-03-15 10:14] VITALS: BP 103/69
[2020-03-15] MEDS ORDERED: ACETAMINOPHEN 325 MG TABLET. PO ONE (10:45)
[2020-03-15 10:48] LABS: BILIRUBIN,URINE NEGATIVE (NEG); CLARITY,URINE CLEAR; COLOR,URINE YELLOW; NITRITE,URINE NEGATIVE (NEG); PROTEIN,URINE NEGATIVE (NEG-TRACE); UROBILINOGEN,URINE 0.2 mg/dL (0.2 mg/dL)
[2020-03-15 11:02] LABS: BASO % 1 % (0-3); EOS # 0.1 x10^3/uL (0.0-0.7); EOS % 3 % (0-3); LYMPH # 1.3 x10^3/uL (1.0-4.8); LYMPH % 31 % (24-48); MEAN CORPUSCULAR HEMOGLOBIN 29 pg (25-35); MEAN CORPUSCULAR HGB CONC 34 g/dL (31-37); MEAN CORPUSCULAR VOLUME 86 fL (79-100); MONO # 0.3 x10^3/uL (0.0-1.1); MONO % 7 % (0-9); NEUT # 2.4 x10^3/uL (1.8-7.7); NEUT % 59 % (31-73); PLATELET COUNT 212 x10^3/uL (140-400); RED BLOOD COUNT 5.15 x10^6/uL (4.30-5.70); RED CELL DISTRIBUTION WIDTH 13.4 % (11.5-14.5); WHITE BLOOD COUNT 4.1 x10^3/uL (4.0-11.0)
[2020-03-15 11:04] LABS: SQUAMOUS EPITHELIAL CELL,UR OCC /LPF
[2020-03-15 11:05] LABS: BACTERIA,URINE 0 /HPF (0-FEW); RBC,URINE 0 /HPF (0-2)
--- NOTE | 2020-03-15 11:20 | RAD ---
EXAMINATION: CT ABDOMEN PELVIS WO CONTRAST CLINICAL HISTORY: Left-sided abdominal and flank pain TECHNIQUE: Non-IV contrast imaging of the abdomen and pelvis was performed using standard technique, scanning from just above the dome of the diaphragm to the symphysis pubis. Unenhanced imaging is limited for the evaluation of some intra-abdominal and pelvic pathology. CT Dose Reduction Employed: One or more of the following individualized dose reduction techniques were utilized for this examination: 1. Automated exposure control 2. Adjustment of the mA and/or kV according to patient size 3. Use of iterative reconstruction technique. COMPARISON: 12/21/2018 FINDINGS: Lower thorax: Minimal bibasilar subpleural blebs, similar to prior study. Liver: Small old calcified granuloma in the left hepatic lobe, similar to prior study. Biliary: Cholelithiasis without evidence of acute cholecystitis. No biliary ductal dilation. Spleen: Several small old calcified granulomas, similar to prior study. Pancreas: Unremarkable. Adrenals: No mass. Kidneys: No calculus, hydronephrosis or finding to suggest a cyst or mass in the unenhanced kidneys. GI Tract: No bowel dilation. Appendix not definitively visualized. Lymph Nodes: No lymphadenopathy. Mesentery/peritoneum: No ascites. Retroperitoneum: No mass. Vasculature: No abdominal aortic or iliac artery aneurysm. Pelvis: No mass or ascites. Minimally filled urinary bladder. Pelvic organs within normal limits for age. Bones/Soft Tissues: No acute osseous abnormality. IMPRESSION: No evidence of acute abdominal pelvic abnormality or significant interval change. Cholelithiasis without evidence of acute cholecystitis. Electronically signed by: Rishabh Jorgensen DO (03/15/2020 11:18 AM) [id number]
[2020-03-15 11:43] LABS: CALCIUM 9.2 mg/dL (8.5-10.1); CREATININE 1.1 mg/dL (0.7-1.3); GFR 100.4; POTASSIUM 4.6 mmol/L (3.5-5.1)
[2020-03-15 11:50] LABS: ALBUMIN 4.1 g/dL (3.4-5.0); ALBUMIN/GLOBULIN RATIO 1.2 (1.0-1.7); TOTAL BILIRUBIN 0.7 mg/dL (0.2-1.0); TOTAL PROTEIN 7.5 g/dL (6.4-8.2)
--- NOTE | 2020-03-15 12:10 | PHYS DOC ---
Past Medical History Past Medical History: Anemia, GERD Past Surgical History: Other Additional Past Surgical Histo: DENTAL EXTRACTION. 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 Reports he had an EGD in June that showed gallstones and was told if his symptoms persisted he may need a colonoscopy. States he is also having intermittent episodes of left flank pain that radiates to his bladder. Denies any known sick contacts. No associated with food. Requesting "stronger pain medication," other than tylenol/ibuprofen. Last BM 2 days ago-normal brown color. Denies any drug or alcohol use. ROS: Denies any fever, chills, testicular or scrotal pain, rash, dysuria, hematuria, saddle anesthesia, leg swelling, chest pain, dyspnea, sore throat, cough, neck stiffness, headache, abscess, nausea, vomiting, diarrhea, melena, hematochezia, hematemesis. Review of Systems: Review of Systems: Constitutional: Denies fever or chills. [] Eyes: Denies change in visual acuity. [] HENT: Denies nasal congestion or sore throat. [] Respiratory: Denies cough or shortness of breath. [] Cardiovascular: Denies chest pain or edema. [] GI: Denies abdominal pain, nausea, vomiting, bloody stools or diarrhea. [] : Denies dysuria. [] Musculoskeletal: Denies back pain or joint pain. [] Integument: Denies rash. [] Neurologic: Denies headache, focal weakness or sensory changes. [] Endocrine: Denies polyuria or polydipsia. [] Lymphatic: Denies swollen glands. [] Psychiatric: Denies depression or anxiety. [] Heart Score: Risk Factors: Risk Factors: DM, Current or recent (<one month) smoker, HTN, HLP, family history of CAD, obesity. Risk Scores: Score 0 - 3: 2.5% MACE over next 6 weeks - Discharge Home Score 4 - 6: 20.3% MACE over next 6 weeks - Admit for Clinical Observation Score 7 - 10: 72.7% MACE over next 6 weeks - Early Invasive Strategies Current Medications: Current Medications Medications (Trade) Dose Ordered Sig/Liliana Start Time Stop Time Status Last Admin Dose Admin Acetaminophen (Tylenol) 650 mg 1X ONCE 03/15/20 10:45 03/15/20 10:46 DC 03/15/20 11:19 650 MG Allergies: Allergies: Allergies Coded Allergies Type Severity Reaction Last Updated Verified No Known Drug Allergies 05/21/18 No Physical Exam: PE: Constitutional: Well developed, well nourished, no acute distress, non-toxic appearance. [] HENT: Normocephalic, atraumatic, bilateral external ears normal, oropharynx moist, no oral exudates, nose normal. [] Eyes: PERRLA, EOMI, conjunctiva normal, no discharge. [] Neck: Normal range of motion, no tenderness, supple, no stridor. [] Cardiovascular:Heart rate regular rhythm, no murmur [] Lungs & Thorax: Bilateral breath sounds clear to auscultation [] Abdomen: Bowel sounds normal, soft, no tenderness, no masses, no pulsatile masses. [] Skin: Warm, dry, no erythema, no rash. [] Back: No tenderness, no CVA tenderness. [] Extremities: No tenderness, no cyanosis, no clubbing, ROM intact, no edema. [] Neurologic: Alert and oriented X 3, normal motor function, normal sensory function, no focal deficits noted. [] Psychologic: Affect normal, judgement normal, mood normal. [] Current Patient Data: Labs: Laboratory Tests Test 03/15/20 10:00 03/15/20 10:55 03/15/20 11:20 Urine Collection Type Unknown Urine Color Yellow Urine Clarity Clear Urine pH 6.0 (<5.0-8.0) Urine Specific Winner >=1.030 (1.000-1.030) Urine Protein Negative mg/dL (NEG-TRACE) Urine Glucose (UA) Negative mg/dL (NEG) Urine Ketones (Stick) 15 mg/dL (NEG) Urine Blood Negative (NEG) Urine Nitrite Negative (NEG) Urine Bilirubin Negative (NEG) Urine Urobilinogen Dipstick 0.2 mg/dL (0.2 mg/dL) Urine Leukocyte Esterase Negative (NEG) Urine RBC 0 /HPF (0-2) Urine WBC 1-4 /HPF (0-4) Urine Squamous Epithelial Cells Occ /LPF Urine Bacteria 0 /HPF (0-FEW) Urine Mucus Marked /LPF White Blood Count 4.1 x10^3/uL (4.0-11.0) Red Blood Count 5.15 x10^6/uL (4.30-5.70) Hemoglobin 15.0 g/dL (13.0-17.5) Hematocrit 44.0 % (39.0-53.0) Mean Corpuscular Volume 86 fL (79-100) Mean Corpuscular Hemoglobin 29 pg (25-35) Mean Corpuscular Hemoglobin Concent 34 g/dL (31-37) Red Cell Distribution Width 13.4 % (11.5-14.5) Platelet Count 212 x10^3/uL (140-400) Neutrophils (%) (Auto) 59 % (31-73) Lymphocytes (%) (Auto) 31 % (24-48) Monocytes (%) (Auto) 7 % (0-9) Eosinophils (%) (Auto) 3 % (0-3) Basophils (%) (Auto) 1 % (0-3) Neutrophils # (Auto) 2.4 x10^3/uL (1.8-7.7) Lymphocytes # (Auto) 1.3 x10^3/uL (1.0-4.8) Monocytes # (Auto) 0.3 x10^3/uL (0.0-1.1) Eosinophils # (Auto) 0.1 x10^3/uL (0.0-0.7) Basophils # (Auto) 0.0 x10^3/uL (0.0-0.2) Sodium Level 140 mmol/L (136-145) Potassium Level 4.6 mmol/L (3.5-5.1) Chloride Level 104 mmol/L (98-107) Carbon Dioxide Level 29 mmol/L (21-32) Anion Gap 7 (6-14) Blood Urea Nitrogen 14 mg/dL (8-26) Creatinine 1.1 mg/dL (0.7-1.3) Estimated GFR (Cockcroft-Gault) 100.4 BUN/Creatinine Ratio 13 (6-20) Glucose Level 79 mg/dL (70-99) Calcium Level 9.2 mg/dL (8.5-10.1) Total Bilirubin 0.7 mg/dL (0.2-1.0) Aspartate Amino Transferase (AST) 16 U/L (15-37) Alanine Aminotransferase (ALT) 18 U/L (16-63) Alkaline Phosphatase 66 U/L (46-116) Total Protein 7.5 g/dL (6.4-8.2) Albumin 4.1 g/dL (3.4-5.0) Albumin/Globulin Ratio 1.2 (1.0-1.7) Laboratory Tests 03/15/20 10:55 Laboratory Tests 03/15/20 11:20 Vital Signs: Vital Signs Date Time Temp Pulse Resp B/P (MAP) Pulse Ox O2 Delivery O2 Flow Rate FiO2 03/15/20 10:14 98.2 64 18 103/69 (80) 98 Room Air 98.2 EKG: EKG: [] Radiology/Procedures: Radiology/Procedures: IMAGING REPORT Signed PATIENT: MARRY ARAUZ OACCOUNT: [id number] : 1995 LOCATION: ER AGE: 24 SEX: M EXAM STATUS: REG ER ORD. PHYSICIAN: RHYS HADLEY DO REASON: left flank and left sided abd pain PROCEDURE: CT ABDOMEN PELVIS WO CONTRAST EXAMINATION: CT ABDOMEN PELVIS WO CONTRAST CLINICAL HISTORY: Left-sided abdominal and flank pain TECHNIQUE: Non-IV contrast imaging of the abdomen and pelvis was performed using standard technique, scanning from just above the dome of the diaphragm to the symphysis pubis. Unenhanced imaging is limited for the evaluation of some intra-abdominal and pelvic pathology. CT Dose Reduction Employed: One or more of the following individualized dose reduction techniques were utilized for this examination: 1. Automated exposure control 2. Adjustment of the mA and/or kV according to patient size 3. Use of iterative reconstruction technique. COMPARISON: 12/21/2018 FINDINGS: Lower thorax: Minimal bibasilar subpleural blebs, similar to prior study. Liver: Small old calcified granuloma in the left hepatic lobe, similar to prior study. Biliary: Cholelithiasis without evidence of acute cholecystitis. No biliary ductal dilation. Spleen: Several small old calcified granulomas, similar to prior study. Pancreas: Unremarkable. Adrenals: No mass. Kidneys: No calculus, hydronephrosis or finding to suggest a cyst or mass in the unenhanced kidneys. GI Tract: No bowel dilation. Appendix not definitively visualized. Lymph Nodes: No lymphadenopathy. Mesentery/peritoneum: No ascites. Retroperitoneum: No mass. Vasculature: No abdominal aortic or iliac artery aneurysm. Pelvis: No mass or ascites. Minimally filled urinary bladder. Pelvic organs within normal limits for age. Bones/Soft Tissues: No acute osseous abnormality. IMPRESSION: No evidence of acute abdominal pelvic abnormality or significant interval change. Cholelithiasis without evidence of acute cholecystitis. Electronically signed by: Rishabh Canales DO (03/15/2020 11:18 AM) [id number] DICTATED and SIGNED BY: RISHABH CANALES DO DATE: 03/15/20 1118 Course & Med Decision Making: Course & Med Decision Making Pertinent Labs and Imaging studies reviewed. (See chart for details) C/o left-sided abdominal pain for the past week. CT imaging with no evidence of renal colic or nephrolithiasis, consistent with colitihlithiasis, no cholecystitis. Patient very calm, well-appearing and in no active distress, no n/v. Urinanalysis with mild ketonuria, no rbcs/blood. Labs unremarkable with normal lipase, no leukocytosis. Encouraged urgent outpatient follow-up with PMD and GI for colonoscopy. Life-threatening processes were considered but are low suspicion at this time, given history and physical exam. Pt was educated on all prescription medications and adverse effects. All patient's questions were answered and pt was stable at time of discharge. Differential includes aortic dissection, aortic aneurysm, acute coronary syndrome, surgical abdomen (appendicitis, cholecystitis, ischemic bowel, s trangulated hernia, etc), bowel obstruction or volvulus, bladder outlet obstruction, gastrointestinal bleeding, inflammatory bowel disease, peptic ulcer disease, sepsis, diverticular disease, ureterolithiasis, nephrolithiasis, ovarian or testicular torsion, ectopic , vaginal hemorrhage of infection I spoken with the patient and her caregivers. I explained the patient's condition, diagnoses and treatment plan based on the information available to me at this time. I have answered the patient and her caregiver's questions and addressed any concerns. The patient and her caregivers have a good understanding of patient's diagnosis, condition and treatment plan as can be expected at this point. Vital signs have been stable. Patient's condition is stable and appropriate for discharge from the emergency department. Patient will pursue further outpatient evaluation with primary care physician or other designated or consulting physician as outlined in the discharge instructions. The patient and/or caregivers are agreeable to this plan of care and follow-up instructions have been explained in detail. The patient and/or caregivers have received these instructions in written form and have expressed an understanding of the discharge instructions. The patient and/or caregivers are aware that any significant change of condition or worsening of symptoms should prompt immediate return to this or the closest emergency department or call to 911. Levy Disclaimer: Dragtorie Disclaimer: This electronic medical record was generated, in whole or in part, using a voice recognition dictation system. Departure Departure Impression: Primary Impression: Abdominal pain Additional Impression: Cholelithiasis Disposition: HOME, SELF-CARE Condition: STABLE Referrals: NO PCP (PCP) Patient Instructions: Abdominal Pain Additional Instructions: Jaun Bacon MD Gastroenterology - in 1-2 weeks [facility] Address: [address] [place] [address] Justicifation of Admission Dx: Justifications for Admission: Justification of Admission Dx: N/A RHYS HADLEY DO Mar 15, 2020 12:10
== END 2020-03-15 13:52 | disposition home or self-care (01) ==
LOC: ER 09:27
DX: K80.20 Calculus of gallbladder without cholecystitis without obstruction (principal); R10.32 Left lower quadrant pain; R10.12 Left upper quadrant pain; K21.9 Gastro-esophageal reflux disease without esophagitis; D64.9 Anemia, unspecified; F17.200 Nicotine dependence, unspecified, uncomplicated; F12.90 Cannabis use, unspecified, uncomplicated; Z98.890 Other specified postprocedural states
CPT/HCPCS: 36415; 74176; 80053; 81001; 83690; 85025; 99284